=== PATIENT | female | born 1990 | race Caucasian/White ===

== ENCOUNTER 2020-07-04 11:05 | Emergency (ER) | payer BC, OTHER ==
--- NOTE | 2020-07-04 12:40 | RAD REPORT ---
EXAM DESCRIPTION: US - Abdomen Exam Limited - 07/04/2020 12:16 pm CLINICAL HISTORY: ABD PAIN COMPARISON: No comparisons FINDINGS: The gallbladder demonstrates no gallstones. No pericholecystic fluid or gallbladder wall t hickening. The common bile duct is normal measuring 3 mm. The liver demonstrates no findings of intrahepatic biliary dilatation. IMPRESSION: Unremarkable examination.
--- NOTE | 2020-07-04 12:48 | ER ---
Nurse's Notes [facility] Name: Gifty Evans Age: 30 yrs Sex: Female : 1990 Arrival Date: 07/04/2020 Time: 11:07 Bed 17 Private MD: Diagnosis: Right Lower Rib pain Presentation: 07/04 11:26 Chief complaint: Patient states: a couple days ago I coughed and my rib popped and this iw morning I woke up and was having a hard time breathing , feels pain in right lower ribs more when she takes a deep breath in or moves , is 32 weeks , was cleared by L\T\D. Coronavirus screen: At this time, the client does not indicate any symptoms associated with coronavirus-19. Ebola Screen: Patient negative for fever greater than or equal to 101.5 degrees Fahrenheit, and additional compatible Ebola Virus Disease symptoms Patient denies exposure to infectious person. Initial Sepsis Screen: Does the patient meet any 2 criteria? No. Patient's initial sepsis screen is negative. Does the patient have a suspected source of infection? No. Patient's initial sepsis screen is negative. Risk Assessment: Do you want to hurt yourself or someone else? Patient reports no desire to harm self or others. Onset of symptoms was July 02, 2020. 11:26 Method Of Arrival: Wheelchair iw 11:26 Acuity: MARKO 3 iw Historical: - Allergies: 11:28 PENICILLINS; iw - Home Meds: 11:28 None [Active]; iw - PMHx: 11:28 None; iw - PSHx: 11:28 None; iw - Immunization history:: Adult Immunizations not up to date. - Social history:: Smoking status: Patient denies any tobacco usage or history of. Screenin:35 Abuse screen: Denies threats or abuse. Nutritional screening: No deficits noted. rb3 Tuberculosis screening: No symptoms or risk factors identified. Fall Risk None identified. Assessment: 11:35 General: Appears in no apparent distress. comfortable, Behavior is calm, cooperative. rb3 Pain: Complains of pain in right lower rib Pain began 2-3 days ago. Neuro: Level of Consciousness is awake, alert, obeys commands, Oriented to person, place, time, situation. Cardiovascular: Patient's skin is warm and dry. Respiratory: Reports pain with respiration Airway is patent Respiratory effort is even, unlabored, Respiratory pattern is regular, symmetrical. GI: No signs and/or symptoms were reported involving the gastrointestinal system. : No signs and/or symptoms were reported regarding the genitourinary system. 12:45 Reassessment: Patient appears in no apparent distress at this time. No changes from rb3 previously documented assessment. 13:18 Reassessment: Patient appears in no apparent distress at this time. Patient and/or rb3 family updated on plan of care and expected duration. Pain level reassessed. Patient is alert, oriented x 3, equal unlabored respirations, skin warm/dry/pink. Vital Signs: 11:26 BP 122 / 68; Pulse 91; Resp 18 S; Temp 97.4; Pulse Ox 99% on R/A; iw 12:47 BP 119 / 71; Pulse 75; Resp 17; Pulse Ox 98% ; rb3 13:17 BP 111 / 61; Pulse 86; Resp 17; Pulse Ox 98% ; rb3 ED Course: 11:07 Patient arrived in ED. as 11:26 Madison Cm FNP-C [facility]. kb 11:26 Kel Baer MD is Attending Physician. kb 11:28 Triage completed. iw 11:28 Arm band placed on. iw 11:35 Patient has correct armband on for positive identification. Bed in low position. Call rb3 light in reach. Side rails up X 1. Pulse ox on. NIBP on. 12:03 Jessica Carr, RN is Primary Nurse. rb3 12:16 US Abdomen Limited In Process Unspecified. EDMS 13:18 No provider procedures requiring assistance completed. Patient did not have IV access rb3 during this emergency room visit. Administered Medications: No medications were administered Outcome: 12:47 Discharge ordered by . kb 13:18 Discharged to home ambulatory. rb3 13:18 Condition: stable 13:18 Discharge instructions given to patient, Instructed on discharge instructions, follow up and referral plans. Demonstrated understanding of instructions, follow-up care, Prescriptions given X none 13:18 Patient left the ED. rb3 Signatures: Dispatcher [employer] EDMS Madison Cm FNP-C FNP-Melodie Hough as Aminah Randle RN RN iw Jessica Carr, RN RN rb3
--- NOTE | 2020-07-04 12:48 | EDPHYS ---
Physician Documentation [facility] Name: Gifty Evans Age: 30 yrs Sex: Female : 1990 Arrival Date: 07/04/2020 Time: 11:07 Bed 17 Private MD: ED Physician Kel Baer HPI: 07/04 13:11 This 30 yrs old Female presents to ER via Wheelchair with complaints of Rib kb Pain. 13:14 The patient or guardian reports cough, that is intermittent, described as mild, with no kb sputum. Onset: The symptoms/episode began/occurred 3 day(s) ago. Severity of symptoms: At their worst the symptoms were mild, moderate, in the emergency department the symptoms are unchanged. Modifying factors: The symptoms are alleviated by nothing, the symptoms are aggravated by nothing. Associated signs and symptoms: Pertinent positives: chest pain, with cough, with movement, Pertinent negatives: diarrhea, ear ache, fever, nausea, rhinorrhea, sore throat, vomiting. The patient has not experienced similar symptoms in the past. The patient has not recently seen a physician. Pt states she coughed a couple of nights ago and felt a pop in her right lower ribs. States she has had pain since then. Reports pain and tenderness to right lower lateral and posterior ribs. Pt is 32 weeks . Was cleared by L\T\D then sent here for an x-ray and US of gallbladder that was requested by Dr Hill. Historical: - Allergies: 11:28 PENICILLINS; iw - Home Meds: 11:28 None [Active]; iw - PMHx: 11:28 None; iw - PSHx: 11:28 None; iw - Immunization history:: Adult Immunizations not up to date. - Social history:: Smoking status: Patient denies any tobacco usage or history of. ROS: 13:09 Constitutional: Negative for fever, chills, and weight loss, Respiratory: Negative for kb shortness of breath, cough, wheezing, and pleuritic chest pain, Abdomen/GI: Negative for abdominal pain, nausea, vomiting, diarrhea, and constipation, MS/Extremity: Negative for injury and deformity, Skin: Negative for injury, rash, and discoloration, Neuro: Negative for headache, weakness, numbness, tingling, and seizure. 13:09 Cardiovascular: Positive for chest pain, with cough, with movement, of the right lateral posterior chest and right lateral anterior chest. Exam: 13:10 Constitutional: This is a well developed, well nourished patient who is awake, alert, kb and in no acute distress. Head/Face: Normocephalic, atraumatic. Cardiovascular: Regular rate and rhythm with a normal S1 and S2. No gallops, murmurs, or rubs. Normal PMI, no JVD. No pulse deficits. Respiratory: Lungs have equal breath sounds bilaterally, clear to auscultation and percussion. No rales, rhonchi or wheezes noted. No increased work of breathing, no retractions or nasal flaring. Abdomen/GI: Soft, non-tender, with normal bowel sounds. No distension or tympany. No guarding or rebound. No evidence of tenderness throughout. Skin: Warm, dry with normal turgor. Normal color with no rashes, no lesions, and no evidence of cellulitis. MS/ Extremity: Pulses equal, no cyanosis. Neurovascular intact. Full, normal range of motion. Neuro: Awake and alert, GCS 15, oriented to person, place, time, and situation. Cranial nerves II-XII grossly intact. Motor strength 5/5 in all extremities. Sensory grossly intact. Cerebellar exam normal. Normal gait. 13:10 Chest/axilla: Inspection: normal, Palpation: tenderness, that is moderate, of the right lateral posterior chest and right lateral anterior chest, that totally reproduces the patient's complaints. Vital Signs: 11:26 BP 122 / 68; Pulse 91; Resp 18 S; Temp 97.4; Pulse Ox 99% on R/A; iw 12:47 BP 119 / 71; Pulse 75; Resp 17; Pulse Ox 98% ; rb3 13:17 BP 111 / 61; Pulse 86; Resp 17; Pulse Ox 98% ; rb3 MDM: 11:26 Patient medically screened. kb 13:08 Data reviewed: vital signs, nurses notes. Data interpreted: Pulse oximetry: on room air kb is 98 %. Interpretation: normal. Counseling: I had a detailed discussion with the patient and/or guardian regarding: the historical points, exam findings, and any diagnostic results supporting the discharge/admit diagnosis, radiology results, the need for outpatient follow up, a family practitioner, to return to the emergency department if symptoms worsen or persist or if there are any questions or concerns that arise at home. 07/04 11:29 Order name: US Abdomen Limited; Complete Time: 12:45 kb Administered Medications: No medications were administered Disposition: 16:59 Co-signature as Attending Physician, Kel Baer MD I agree with the assessment and kdr plan of care. Disposition: 07/04/20 12:47 Discharged to Home. Impression: Right Lower Rib pain. - Condition is Stable. - Discharge Instructions: Costochondritis, Spgp-[id number], Pleurisy, [id number], Rib Fracture, Vjif-[id number]. - Medication Reconciliation Form, Thank You Letter, Antibiotic Education, Prescription Opioid Use form. - Follow up: Emergency Department; When: As needed; Reason: Worsening of condition. Follow up: Private Physician; When: 2 - 3 days; Reason: Recheck today's complaints, Continuance of care, Re-evaluation by your physician. Signatures: Dispatcher [employer] [facility] Madison Cm, AUTOMATIC LOG CUT OFF SAWYER-C AUTOMATIC LOG CUT OFF SAWYER-CkKel Kim MD MD kdr Aminah Randle, EULALIA RN iw Jessica Carr, RN RN rb3 Corrections: (The following items were deleted from the chart) 12:15 11:30 Chest Single View+RAD.RAD.BRZ ordered. [facility] 13:18 12:47 07/04/2020 12:47 Discharged to Home. Impression: Right Lower Rib pain. Condition rb3 is Stable. Forms are Medication Reconciliation Form, Thank You Letter, Antibiotic Education, Prescription Opioid Use. Follow up: Emergency Department; When: As needed; Reason: Worsening of condition. Follow up: Private Physician; When: 2 - 3 days; Reason: Recheck today's complaints, Continuance of care, Re-evaluation by your physician. kb
[2020-07-04 13:31] VITALS: TEMP 97.4
[2020-07-04 13:32] VITALS: O2SAT 98
[2020-07-04 13:33] VITALS: BP 111/61
== END 2020-07-04 13:18 | disposition home or self-care (01) ==
LOC: ER 11:05
DX: R07.81 Pleurodynia (principal); Z88.0 Allergy status to penicillin
CPT/HCPCS: 76705; 99283

== ENCOUNTER 2020-08-07 09:40 | Inpatient (IN) | payer BC, OTHER ==
[2020-08-07] MEDS ORDERED: Ringers Lactate 1,000 ML IV PRN (11:56)
[2020-08-07] MEDS ORDERED: PROMETHAZINE INJ 25 MG/ML AMP IM PRN (11:56)
[2020-08-07] MEDS ORDERED: CARBOPROST TROME 250 MCG/ML IM PRN (11:56)
[2020-08-07] MEDS ORDERED: BUTORPHANOL 1 MG/ML INJ IV PRN (11:56)
[2020-08-07] MEDS ORDERED: METHYLERGONOVINE 0.2MG/ML AMP IM PRN (11:56)
[2020-08-07] MEDS ORDERED: Ringers Lactate 1,000 ML IV SCH (12:00)
[2020-08-07] MEDS ORDERED: OXYTOCIN/LR 20 UNIT/1,000 ML BAG IV SCH (12:00)
[2020-08-07 12:43] VITALS: BMI 26.7
[2020-08-07 12:54] LABS: Absolute Lymphocytes (CBC) 1.3 K/uL (0.7-4.9); Basophils % 0.8 % (0-1.3); Lymphocytes % 10.5 % (15.3-44.8); RBC Red Blood Cell Count 3.96 M/uL (3.86-4.86)
[2020-08-07 12:59] LABS: Urine Appearance CLOUDY; Urine Bilirubin NEGATIVE (NEG); Urine Blood NEGATIVE (NEG); Urine Color YELLOW; Urine Glucose NEGATIVE (NEG); Urine Protein NEGATIVE (NEG); Urine Specific Gravity 1.025 (1.005-1.030)
[2020-08-07 13:03] LABS: Urine Microscopic Reflex ORDER UMIC
[2020-08-07 13:35] LABS: Urine Bacteria >50 /HPF (<20); Urine RBC <5 /HPF (NONE SEEN)
[2020-08-07] MEDS ORDERED: FENTANYL/BUPIVACAINE/NS/PF 200 MCG/100 ML BAG EP PRN (15:15)
[2020-08-07] MEDS ORDERED: ROPIVACAINE HCL 0.2% 20ML AMP IV ONE (15:15)
[2020-08-07] MEDS ORDERED: FENTANYL CITR 100 MCG/2 ML IV ONE (15:15)
[2020-08-07] MEDS ORDERED: LIDOCAINE 1% MPF 30 ML VIAL ONE (15:35)
[2020-08-07] MEDS ORDERED: BUPIVACAINE 0.25% PF 10 ML VIAL ONE (16:40)
--- NOTE | 2020-08-07 18:35 | PN ---
Now on 2 milliunits of Pitocin, darius regularly. Baby looks good. Vital signs are all stable. She has progressed to 3.5 cm and with the exam, baby was low and spontaneous rupture of membranes. Clear fluid. Anticipate more rapid progress. Patient knows that if she gets uncomfortable to the p oint which needs medicines, she can get followed by the epidural. She can get the epidura l earlier if she requests. Right now, she is trying to go natural at this point. Anticipate more ra pid progress once the patient gets to 5 cm. GANESH/NEIDA Voice ID: [id number] Report ID: [id number]
[2020-08-07] MEDS ORDERED: IBUPROFEN 600 MG TAB PO PRN (21:03)
--- NOTE | 2020-08-07 21:37 | PN ---
The patient requested epidural at 4.5 cm. She is now 7.5 cm, 0 to almost +1 station. Little bit of edema on the anterior cervical lip but reduces quite well during the contraction. Baby looks good. She is on 10 milliunits of Pitocin. We should be ready to start pushing here fairly soon. Full disc ussion with the patient and . GANESH/NEIDA Voice ID: [id number] Report ID: [id number]
--- NOTE | 2020-08-08 08:53 | DS ---
Hospital Course: A 30-year-old primigravida, 37 weeks and 5 days, came in early labor. Subsequently , delivered a 6 pounds 7 ounces female, Apgars 9 and 9. After 1 hour and 20 minute, second stage. T hree first-degree lacerations, all sutured with 2-0 chromic. Schultze delivery of the placenta, whic h was inspected and noted to be intact and normal. 300 mL blood loss. Rh negative. Immune to rubel la. Strep negative. COVID negative. She is being qualified for RhoGAM of course at this point. Td ap and flu shots offered. ; afebrile, ambulating and voiding. Lochia is normal. Will be dismissed later today, to report back to my office in 6 weeks for followup. To report any temperatur e elevation of 100 degrees or greater, severe pain, heavy bleeding, or any other type of abnormalitie s. Requests no analgesics on dismissal. No post epidural problems. Final Diagnoses: Intrauterine gestation, 37 weeks 5 days, spontaneous labor, vaginal delivery, epidu ral anesthesia. Tdap and flu shots offered. RhoGAM workup underway, will be administered prior to d ismissal if the baby is Rh positive. LINDSEYC/MODL Voice ID: [id number] Report ID: [id number]
[2020-08-08] MEDS ORDERED: Rho(D) IG (HUMAN) 300 MCG SYR IM ONE (09:00)
--- NOTE | 2020-08-08 09:56 | PREOPHP ---
Date of Admission: 08/07/2020 History Of Present Illness: The patient is a 30-year-old primigravida, 37 weeks 5 days, seen in the office earlier in the week, noted to be 3 cm and said she is having irregular contractions. The soha ent states that since about 9 or 9:30 this morning she is having regular contractions, came to the spital. She is indeed darius every one and half to two minutes. Baby looks excellent. Vital s igns are stable. Her cervix is about 3.5 now. Baby is still high. The nurse said after her initial exam there is a slight amount of blood. I see some mild blood, almost looks like a mild port wine c olor. It could be a very marginal abruption going on, but right now, the baby looks stable. We will start Pitocin, get the baby down lower, so we can rupture membranes and expedite the delivery. She has beta strep negative and a female fetus. Family History: Really noncontributory. Past Medical History: Noncontributory. Social History: Does not smoke. Physical Examination: HEENT: Clear. Pupils equal, round, reactive to light and accommodation. Conjunctivae well perfused . No oral, lingual, or buccal lesions. Chest: Had been clear. Abdomen: Term size. Extremities: Clear without edema, cyanosis, or clubbing. Pelvic: Exam as stated. Plan: We will admit for augmentation and delivery. Full labor talk given. GANESH/NEIDA Voice ID: [id number]
--- NOTE | 2020-08-08 10:00 | OP ---
Surgeon: Kannan Hill MD A 30-year-old primigravida at 37 weeks and 5 days, came in early labor, was 3.5 cm on admission, cont racting every 1 to 1.5 minutes. Little bloody show at that time. It was thought possibly patient ramos d a marginal abruption but at the time of delivery it was not borne out. The patient just had a johnathan le bloody show. She was started on Pitocin and spontaneous rupture of membranes occurred when patien t was being examined when she was 3.5 cm, clear fluid. At 4.5, patient requested and received epidur al. After the epidural, she was checked and noted to be 7.5 to 8. She progressed to complete, secon d stage of about an hour and 20 minutes. Baby was occiput posterior but rotated at the last minute. Patient delivered a 6 pounds 7 ounces female, Apgars 9 and 9. Three small first-degree lacerations, all repaired with 2-0 chromic running locked stitch. Schultze delivery of the placenta, which was i nspected and noted to be intact and normal. Estimated blood loss 300 cc. The patient tolerated proc edures well. She is Rh negative. Received RhoGAM during the and will be qualified for [facility]. She is immune to rubella, strep negative. COVID negative. Final Diagnoses: Intrauterine gestation, 37 weeks and 5 days, spontaneous labor, vaginal delivery, e pidural anesthesia. Rh negative. RhoGAM pending. GANESH/NEIDA Voice ID: [id number] Report ID: [id number]
[2020-08-08 16:08] VITALS: BP 113/70; TEMP 97.3
[2020-08-08 22:35] LABS: RPR (Rapid Plasma Reagin) NON-REACT (NON-REACT)
[2020-08-10 22:19] LABS: HBsAG Nonreactive (Nonreactive)
== END 2020-08-08 20:55 | disposition home or self-care (01) | DRG 833 ==
LOC: L&D 09:40 → 2ND-WC 11:54
PROVIDERS: ADMIT Specialist; ATTEND Specialist
PROC: 3E033VJ Introduction of Other Hormone into Peripheral Vein, Percutaneous Approach (ICD-10-PCS; principal; 2020-08-07)
PROC: 4A1H7CZ Monitoring of Products of Conception, Cardiac Rate, Via Natural or Artificial Opening (ICD-10-PCS; 2020-08-07)
PROC: 10H073Z Insertion of Monitoring Electrode into Products of Conception, Via Natural or Artificial Opening (ICD-10-PCS; 2020-08-07)
PROC: 3E0234Z Introduction of Serum, Toxoid and Vaccine into Muscle, Percutaneous Approach (ICD-10-PCS; 2020-08-07)
PROC: 0HQ9XZZ Repair Perineum Skin, External Approach (ICD-10-PCS; 2020-08-07)
DX: O26.893 Other specified pregnancy related conditions, third trimester (principal); O71.5 Other obstetric injury to pelvic organs; O70.0 First degree perineal laceration during delivery; Z67.91 Unspecified blood type, Rh negative; Z3A.37 37 weeks gestation of pregnancy; Z37.0 Single live birth; Z20.822 Contact with and (suspected) exposure to COVID-19
CPT/HCPCS: 36415; 81003; 81015; 85025; 85461; 86592; 86850; 86870; 86900; 86901; 87340; 99218; J0595; J2210; J2550; J2590; J2790; J3010; J7120; U0003